=== PATIENT | female | born 1995 | race Caucasian/White ===

== ENCOUNTER 2020-06-05 07:16 | Day surgery (SDC) | payer BC ==
[~2020-06-05] VITALS: Ht 152.4 cm; Wt 64.0 kg
[~2020-06-05 07:16] MED LIST: FIBER500 MG PO; TUMS200 MG PO; TYLENOL325 MG PO
[2020-06-05] MEDS ORDERED: IBUPROFEN600 MG PO (10:57)
[2020-06-05] MEDS ORDERED: OXYCODON-ACETA1 EAC2 PO (10:57)
[2020-06-05] MEDS ORDERED: ACETAMINOPHEN500 MG PO (10:58)
--- NOTE | 2020-06-05 10:58 | NUR ---
06/05/20 1058 Ana Saenz 1042- PT ARRIVES TO PACU NONAROUSABLE TO NOXIOUS STIMULI WITH AN OPA IN PLACE. RESP EVEN AND UNLABORED, OXYGEN SAT HIGH 90'S TO 100% ON 6L VIA MASK. NOISES COMING FROM THE AIRWAY. JAW LIFT AND JAW THRUST DO NOT CLEAR THIS NOISE. LUNGS DUNN ARE CLEAR WITH AIR MOVEMENT CLEARLY BEING HEARD THROUGHOUT. MILA JIN CRNA AWARE. ORDERS RECEIVED IF NEEDED FOR THE PT.
--- NOTE | 2020-06-05 11:33 | NUR ---
DECLINES OFFER OF PAIN MEDS.
--- NOTE | 2020-06-05 12:43 | NUR ---
STEADY ON FEET WITH ONE PERSON STAND BY ASSIST FOR AMBULATION TO BR. DENIES NAUSEA. REPORTS MILD ABDOMINAL PAIN BUT DOES NOT RATE ON 0-10 SCALE.
--- NOTE | 2020-06-05 12:45 | NUR ---
PT USES BATHROOM CALL LIGHT TO ALERT DS STAFF. PT ABLE TO VOID 200 MLS YELLOW URINE WITH NO PROBLEMS. PT AMBULATES BACK TO DS RM 4 WITH STEADY GAIT, STATES FEELING DIZZY WITH MOVEMENENT. BACK TO BED AND GIVEN COOL WASH CLOTH, CALL LIHT WITHIN REACH.
--- NOTE | 2020-06-05 12:49 | NUR ---
1215 PT STATES COMFORTABLE, IV PATENT. HAS BEEN UPDATED.
--- NOTE | 2020-06-05 13:53 | NUR ---
IVANA BAILEY AND Parth prior to pain medicine.
--- NOTE | 2020-06-05 13:54 | NUR ---
1345 ready to go home. [facility] pain medicine starting to work.
--- NOTE | 2020-06-11 08:31 | OR ---
[facility] [address], [place] [address] Signed DATE OF OPERATION: 06/05/2020 SURGEON: Jero Hurley MD PREOPERATIVE DIAGNOSIS: Chronic calculous cholecystitis. POSTOPERATIVE DIAGNOSIS: Chronic calculous cholecystitis. PROCEDURES: 1. Laparoscopic cholecystectomy with intraoperative cholangiogram. 2. Surgeon-directed fluoroscopy. ANESTHESIA: General endotracheal; Michael Cyndy, DECORATING CONSULTANT and local 10 mL of 0.25% Marcaine with epinephrine. INDICATION: This 25-year-old white woman is from [place], [place]. For three years, she has had rather typical right subcostal abdominal pain worse with fatty foods. She was evaluated initially in [place], [place] where she had a diagnosis of "nonalcoholic fatty liver disease." An ultrasound was performed there confirming gallstones. An ultrasound was repeated in September 2019 showing the same findings and on December 10, 2019, a CT scan of the abdomen showing mild diffuse irregular wall thickening of the gallbladder, though the stones were not seen. She underwent a HIDA scan without CCK stimulation on January 29, 2020, which was normal. 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 She is self-referred for further consideration of her problem and I have recommended cholecystectomy for symptomatic gallstones. The risks of bleeding, infection, bile duct injury, need for open procedure, and of course failure to cure her symptoms was reviewed in detail. She understands and wished to proceed. FINDINGS: The gallbladder was chronically inflamed. It was not acutely inflamed. There were multiple adhesions to its undersurface. The liver itself was completely normal in every way. The gallbladder once excised showed multiple yellow multifaceted stones and cholangiogram was normal. DESCRIPTION OF PROCEDURE: The patient was brought to the operating room, given a general endotracheal anesthetic. Electronically Signed By: JERO HURLEY MD 06/11/20 0831 PATIENT NAME: ISAIAS AMATO OPERATIVE REPORT DATE OF : [birth year] REPORT #: [id number] PHYSICIAN: JERO HURLEY MD PCP: NO PRIMARY CARE PHYSICIAN REPORT IS CONFIDENTIAL AND NOT TO BE RELEASED WITHOUT AUTHORIZATION [facility] [address], [place] [address] Signed Preoperative antibiotic Ancef was given. Sequential compression device stockings were used and heparin subcutaneously administered. The abdomen was prepared with a chlorhexidine solution and draped sterilely. An infraumbilical incision was made and using an open Madhav cannula technique, pneumoperitoneum was achieved to a level of 14 mmHg of carbon dioxide gas. Intraabdominal inspection showed no sign of ascites or carcinomatosis. The liver was entirely normal. The gallbladder was obscured from view largely due to surrounding structures. Three additional trocars were placed in usual configuration in the subxiphoid, right midclavicular, and right anterior axillary line. The gallbladder was elevated cephalad and found to have filmy adhesions of omentum to its undersurface. These were taken down with blunt and electrocautery dissection. Further elevation of the gallbladder was undertaken for dissection of the infundibulum. The cystic duct was more inferior and medial than I had expected, but with meticulous care was dissected free completely allowed for a critical view of safety. A clip was applied across gallbladder cystic duct junction. Clips have been applied to the cystic arterial branches and divided. A transverse choledochotomy was made in the cystic duct. Egress of clear bile was noted. Retrograde milking of the cystic duct showed no sign of stone. Using the Steve type cholangiocatheter intraoperative cholangiography was undertaken showing free flow of contrast in biliary tree with prompt emptying into the duodenum. The biliary tree was small in caliber and without sign of biliary anomaly or filling defect. The cystic duct was relatively long. It was clipped and divided and the gallbladder dissected free in a retrograde fashion using electrocautery. The gallbladder was extracted through the infraumbilical port site, opened on the back table and found multiple yellow multifaceted gallstones. There was no sign of neoplasm. Irrigation was undertaken of the subhepatic space. There was no sign of bile leak, bleeding or other problems. Excess irrigation of fluid was suctioned free. The trocars removed under direct visualization. The infraumbilical fascial incision was reapproximated with interrupted 0 Vicryl suture in a running 2-0 PDS suture as well. A 10 mL of 0.25% Marcaine with epinephrine was injected locally. The skin was closed with interrupted 3-0 Vicryl. Steri-Strips were applied. The patient was ultimately extubated and transferred to the recovery room in good condition having suffered no complications. Sponge, needle, and instrument counts were reported as correct x3. Jero Hurley MD /SANTYL /[id number] Electronically Signed By: JERO HURLEY MD 06/11/20 0831 PATIENT NAME: ISAIAS AMATO OPERATIVE REPORT DATE OF : [birth year] REPORT #: [id number] PHYSICIAN: JERO HURLEY MD PCP: NO PRIMARY CARE PHYSICIAN REPORT IS CONFIDENTIAL AND NOT TO BE RELEASED WITHOUT AUTHORIZATION [facility] [address] [place], [place] [address] Signed Copies: ~ Electronically Signed By: JERO HURLEY MD 06/11/20 0831 PATIENT NAME: ISAIAS AMATO OPERATIVE REPORT DATE OF : [birth year] REPORT #: [id number] PHYSICIAN: JERO HURLEY MD PCP: NO PRIMARY CARE PHYSICIAN REPORT IS CONFIDENTIAL AND NOT TO BE RELEASED WITHOUT AUTHORIZATION
--- NOTE | 2020-06-11 16:07 | PATH ---
[facility] [address] [facility] [place] [address] Signed SPECIMEN(S): A GALLBLADDER AND STONES SPECIMEN SOURCE: A. GALLBLADDER AND STONES CLINICAL HISTORY: Pre: Chronic cholecystitis. Post: Lap vijya. FINAL PATHOLOGIC DIAGNOSIS: Gallbladder, cholecystectomy: - Chronic cholecystitis. - Cholelithiasis. COMMENT: As part of [employer] Quality Improvement Program, this case was reviewed by another member of our pathology staff. NAL:NRT:cml:C2NR MICROSCOPIC EXAMINATION: Histologic sections of all submitted blocks are examined by light microscopy. These findings, together with the gross examination, support the pathologic diagnosis. GROSS DESCRIPTION: The specimen, labeled "BW," and designated on the requisition "gallbladder and stones," is received in formalin and consists of Specimen: Received in gallbladder. Dimensions: 8.0 x 4.0 x 0.8 cm. Serosa: [place]-mckeon smooth. Cystic Duct: unobstructed. Calculi: Multiple yellow white calculi (4.3 x 4.0 x 2.2 cm in aggregate). Mucosa: Red-brown and velvety with edematous cut surface. Wall thickness: 0.9 cm. Lymph node: No pericystic lymph nodes are grossly identified. Additional: None. [employer] sections are submitted in cassette (A1). AC (under the direct supervision of a pathologist) Additional sections of the specimen cassette (A2-A3) at the request of Dr. Mcgovern The Gross Description was prepared using a voice recognition system. The report was reviewed for accuracy; however, sound-alike word errors, addition and/or deletions may occur. If there is any PATIENT NAME: ISAIAS AMATO PATHOLOGY DATE OF : [birth year] REPORT #: [id number] PHYSICIAN: LEONARDO PATHOLOGY PCP: NO PRIMARY CARE PHYSICIAN REPORT IS CONFIDENTIAL AND NOT TO BE RELEASED WITHOUT AUTHORIZATION [facility] [address] [address] Signed question about this report, please contact Client Services. PERFORMING LABORATORY: The technical component [place] [address] (Metal Spraying Machine Operator: Jackie Chacon MD; CLIA# [id number]). Professional interpretation was performed by [employer] [facility], [address] [address] (CLIA# [id number]). Diagnostician: Olga Mcgovern MD Pathologist Electronically Signed 06/11/2020 Copies: ~ PATIENT NAME: ISAIAS AMATO PATHOLOGY DATE OF : [birth year] REPORT #: [id number] PHYSICIAN: LEONARDO PATHOLOGY PCP: NO PRIMARY CARE PHYSICIAN REPORT IS CONFIDENTIAL AND NOT TO BE RELEASED WITHOUT AUTHORIZATION
== END 2020-06-05 18:00 | disposition home or self-care (01) ==
LOC: DS 07:16
PROVIDERS: ATTEND Surgery
PROC: BF03YZZ Plain Radiography of Gallbladder and Bile Ducts using Other Contrast (ICD-10-PCS; 2020-06-05)
PROC: 0FT44ZZ Resection of Gallbladder, Percutaneous Endoscopic Approach (ICD-10-PCS; principal; 2020-06-05 08:45)
DX: K80.10 Calculus of gallbladder with chronic cholecystitis without obstruction (principal); K76.0 Fatty (change of) liver, not elsewhere classified; J45.909 Unspecified asthma, uncomplicated; K21.00 Gastro-esophageal reflux disease with esophagitis, without bleeding; Z79.899 Other long term (current) drug therapy
CPT/HCPCS: 00790; 74300; J0690; J1100; J1644; J1885; J2001; J2405; J2704; J3010; J7121; Q9967